=== PATIENT | female | born 1985 | race African-American/Black ===

== ENCOUNTER 2016-08-09 20:58 | Emergency (ER) | payer OTHER ==
--- NOTE | ~2016-08-09 | CR72 ---
[facility] A Service of [facility] & [facility] RADIOLOGY TEXT RESULTS PATIENT: EZEQUIEL FREDERICK LOCATION: [facility] : 81 UNIT #: [id number] AGE: [address]: Ba Torres MD SEX: F ORDER DR: [id number] [facility] [address] [place], [place] [address] [id number] E MR#: [id number] Acc #: [id number] NAME: EZEQUIEL FREDERICK : 1985 SEX: F STUDY DATE/TIME: 08/09/2016 21:04 UNIT: [facility] ROOM: STUDY DESCRIPTION: CR Chest Single View Portable Attending Physician: Ba Torres M.D. Ordering Physician: Ba Torres M.D. Primary Care Physician: Kris Esquivel M.D. MEDICAL IMAGING REPORT This report is preliminary unless electronic signature is present EXAM Portable chest, 08/09/2016 HISTORY Shortness of air for 2 days. FINDINGS Moderate cardiac enlargement, accentuated by low lung volumes. Pulmonary vascularity is normal. Stable right interstitial prominence compared to chest x-ray 06/09/2016. IMPRESSION 1. No acute findings. No significant change compared to 06/09/2016. 2. Stable cardiac enlargement. 3. Stable interstitial prominence in the right lung base could be due to atelectasis or scarring. Dictated by... Monroe Rand M.D. THIS IS AN ELECTRONICALLY VERIFIED REPORT Monroe Rand M.D. at 08/10/2016 2:43 PM ZENA/janelle TD: 08/10/2016 04:01 JOB #: [id number] MEDICAL IMAGING REPORT Page 1 of 1 COPY
[~2016-08-09 20:58] MED LIST: ALBUTEROL17 GM INH; BREO ELLIPTA 11 EACH INH; DILAUDID PO; FLOVENT DISKU250 MCG INH; LORTAB 7.5-3251 EACH PO; NEURONTIN300 MG PO; PREDNISONE PO; SINGULAIR PO
[2016-08-09 21:35] LABS: BASOPHIL% 0.8 % (0-2.5); EOSINOPHIL% 0.1 % (0.0-7.0); HEMOGLOBIN 12.5 gm/dL (12.0-16.0); MEAN CELL VOLUME 82.5 FL (83-96); MEAN CORPUSCULAR HEMOGLOBIN 27.1 PG (28-34); MEAN CORPUSCULAR HGB CONC 32.9 g/dL (30-36); MEAN PLATELET VOLUME 7.1 FL (6.5-11.5); MONOCYTE# 0.3 X10e3 (0-1.0); MONOCYTE% 6.7 % (3.0-12.0); NEUTROPHIL# 2.6 X10e3 (1.5-7.1); NEUTROPHIL% 67.4 % (40-75); PLATELET COUNT 183 X10e3 (140-420); RED BLOOD COUNT 4.61 X10e (3.90-5.30); RED CELL DISTRIBUTION WIDTH 15.7 % (11.0-15.5); WHITE BLOOD COUNT 3.8 X10e3 (4.0-10.5)
[2016-08-09 21:38] LABS: DIFF IND NO
[2016-08-09 22:22] LABS: BUN/CREATININE RATIO 17.5; CALCIUM SERUM 8.9 mg/dL (8.4-10.2); CREATININE SERUM 0.8 mg/dL (0.6-1.4); GLOM FILT RATE Estimated 113.2 mL/min (>60); POTASSIUM 3.1 mmol/L (3.5-5.1)
== END 2016-08-10 02:05 | disposition home or self-care (01) ==
LOC: CED 20:58
PROVIDERS: Emergency Medicine
DX: J45.909 Unspecified asthma, uncomplicated (principal); M54.6 Pain in thoracic spine; E87.6 Hypokalemia; Z86.2 Personal history of diseases of the blood and blood-forming organs and certain disorders involving the immune mechanism
CPT/HCPCS: 36415; 71010; 80048; 85025; 85044; 94640; 94644; 96361; 96372; 96374; 96375; 99284; J1170; J2930